=== PATIENT | male | born 1955 | race Caucasian/White ===

== ENCOUNTER 2017-01-25 11:52 | Inpatient (IN) | payer OTHER ==
[~2017-01-25] VITALS: Ht 167.6 cm; Wt 100.4 kg
[~2017-01-25 11:52] MED LIST: Z.0.NO CURRENT MEDS
[2017-01-25 11:54] VITALS: BP 157/83; PULSE 95; RESP 16; TEMP 98.1; O2SAT 99
[2017-01-25] MEDS ORDERED: PANTOPRAZOLE SODIUM 40 MG VIAL IVP ONE (12:15)
[2017-01-25] MEDS ORDERED: ONDANSETRON HCL 4 MG/2 ML VIAL IVP ONE (12:15)
[2017-01-25] MEDS ORDERED: SODIUM CHLOR 0.9% 1000 ML INJ 1,000 ML IV SCH (12:15)
[2017-01-25 12:21] VITALS: BP 158/83; PULSE 91; RESP 20; O2SAT 100
[2017-01-25] MEDS ORDERED: CANA1TAB3 PO (12:27)
[2017-01-25] MEDS ORDERED: AMLO5TAB2 PO (12:27)
[2017-01-25] MEDS ORDERED: ATOR10TA15 PO (12:27)
[2017-01-25] MEDS ORDERED: LISI10TA3 PO (12:27)
--- NOTE | 2017-01-25 12:39 | PD ---
HPI Chief Complaint: GI Complaint Time Seen by Provider: 12:33 Travel History International Travel<30 days: No Contact w/Intl Traveler<30days: No Traveled to known affect area: No History of Present Illness HPI 61-year-old male that presents to the ED for evaluation of dark stools and hematemesis. Patient states that for the past 2 days his been having hematemesis and dark stools. Per patient he does not take any blood thinners but takes ibuprofen and aspirin. Per patient he also drinks frequently secondary to running lumbar. Per patient she's never had this before. Per patient yesterday he had some nausea and vomited blood. He currently related to cover caused the but he does tell me that he was concerned because there was a lot of blood. He did not had another episode until this morning. Per patient since yesterday he is also having more regular and frequent bowel movements with darker stools. He is never had this before. Per patient he had a physical about 2 months ago which was essentially unremarkable. He does tell me that he has some problems with his legs secondary to swelling and neuropathy secondary to diabetes. Patient states that he's been compliant with his medications. He denies any other medical problem. He states that he doesn't really have any abdominal pain. He does to me that he had a fever yesterday and he took some ibuprofen for this. He states that he does not feel he has a fever today. He denies any urinary symptoms. Again he complains of no pain other than when he had the vomit secondary to the vomiting. Pain at this time is 0 out of 10 as he has no discomfort. PFSH Past Medical History Diabetes: Yes Patient Takes Glucophage: No Hypertension: Yes Influenza Vaccination: No Social History Alcohol Use: Yes (DAILY) Tobacco Use: No Substance Use: No Allergies-Medications (Allergen,Severity, Reaction): Coded Allergies: No Known Allergies (Verified , 01/25/17) Reported Meds & Prescriptions Reported Meds & Active Scripts Active Reported Invokamet (Canagliflozin-Metformin) 150-500 Mg Tab 1 Tab PO BID Take with meals. Avoid ethanol. Atorvastatin (Atorvastatin Calcium) 10 Mg Tab 10 Mg PO DAILY Amlodipine (Amlodipine Besylate) 5 Mg Tab 5 Mg PO DAILY Lisinopril 10 Mg Tab 10 Mg PO DAILY Review of Systems General / Constitutional: Positive: Fever, Chills, No: Weight Gain, Weight Loss, Other Eyes: No: Diploplia, Blurred Vision, Photophobia, Drainage, Redness, Foreign Body Sensation, Pain, Tearing, Blind Spots, Visual changes, Blindness, Other HENT: No: Headaches, Vertigo, Lightheadedness, Sore Throat, Rhinitis, Rhinorrhea, Congestion, Nosebleed, Neck Stiffness, Neck Pain, Masses, Gingival Bleeding, Dental Difficulties, Ear Discharge, Earache, Other Cardiovascular: No: Chest Pain or Discomfort, Palpitations, Irregular Rhythm, Tachycardia, Diaphoresis, Syncope, Dyspnea on exertion, Varicosities, Edema, Cyanosis, Varicosities, Phlebitis, Claudication, Other Respiratory: No: Cough, Shortness of Breath, Wheezing, Sneezing, Orthopnea, Hemoptysis, Stridor, Night Sweats, Pleuritic Pain, Other Gastrointestinal: Positive: Nausea, Vomiting, Diarrhea, Abdominal Pain, Hematemesis, Hematochezia Genitourinary: No: Urgency, Frequency, Dysuria, Nocturia, Hematuria, Decreased Urinary Output, Oliguria, Hesitancy, Dribbling, Incontinence, Pelvic Pain, Flank Pain, Dyspareunia, Discharge, Dysmenorrhea, Menorrhagia, Metorrhagia, Vaginal Bleeding, Other Musculoskeletal: No: Myalgias, Arthralgias, Limited ROM, Weakness, Cramping, Edema, Pain, Atrophy, Other Skin: No Rash, No Itching, No Dryness, No Lumps, No Hives, No Change in Pigmentation, No Change in nails, No Alopecia, No Lesions, No Breast Lumps, No Breast Tenderness, No Breast Swelling, No Other Neurologic: No: Weakness, Dizziness, Syncope, Focal Abnormalities, Coordination Problem, Tremor, Ataxia, Headache, Change in Mentation, Slurred Speech, Paresthesia, Incontinence, Seizures, Sensory Disturbance, Other Psychiatric: Positive: Substance Abuse (alcohol), No: Anxiety, Depression, Suicidal Ideations, Disorder of Thought, Mood Disorder, Homicidal Ideation, Other Endocrine: No: Heat Intolerance, Cold Intolerance, Polyuria, Polydipsia, Other Hematologic/Lymphatic: No: Easy Bruising, Lymph Node Enlargement, Other Physical Exam Narrative GENERAL: SKIN: Warm and dry. HEAD: Atraumatic. Normocephalic. EYES: Pupils equal and round 4 mm reactive to light and accommodation. No scleral icterus. No injection or drainage. ENT: No nasal bleeding or discharge. Mucous membranes pink and moist. Tongue is midline. No uvula deviation. NECK: Trachea midline. No JVD. CARDIOVASCULAR: Regular rate and rhythm. No murmurs, S3, S4. RESPIRATORY: No accessory muscle use. Clear to auscultation. Breath sounds equal bilaterally. GASTROINTESTINAL: Abdomen soft, non-tender, nondistended. Hepatic and splenic margins not palpable. Rectal exam was performed and did show positive Hemoccult that was unremarkable. No thong blood noted on exam. MUSCULOSKELETAL: Extremities without clubbing, cyanosis, or edema. No obvious deformities. Full range of motion of the upper and lower extremities bilaterally. 2+ pulses bilaterally. Patient does have 1+ pitting edema on the left leg compared to the right. Some scabbing on the lower legs. NEUROLOGICAL: Awake and alert. No obvious cranial nerve deficits. Motor grossly within normal limits. Five out of 5 muscle strength in the arms and legs. Normal speech. PSYCHIATRIC: Appropriate mood and affect; insight and judgment normal. Data Data Last Documented VS Vital Signs Date Time Temp Pulse Resp B/P Pulse Ox O2 Delivery O2 Flow Rate FiO2 01/25/17 12:21 91 20 158/83 100 Room Air 01/25/17 11:54 98.1 Orders Complete Blood Count With Diff (01/25/17 12:15) Comprehensive Metabolic Panel (01/25/17 12:15) Prothrombin Time / Inr (Pt) (01/25/17 12:15) Act Partial Throm Time (Ptt) (01/25/17 12:15) Lipase (01/25/17 12:15) Urinalysis - C+S If Indicated (01/25/17 12:15) Magnesium (Mg) (01/25/17 12:15) Iv Access Insert/Monitor (01/25/17 12:15) Ecg Monitoring (01/25/17 12:15) Oximetry (01/25/17 12:15) Ct Abd/Pel W Iv Contrast(Rout) (01/25/17 12:15) Ondansetron Inj (Zofran Inj) (01/25/17 12:15) Pantoprazole Inj (Protonix Inj) (01/25/17 12:15) Sodium Chlor 0.9% 1000 Ml Inj (Ns 1000 M (01/25/17 12:15) Admit Order (Ed Use Only) (01/25/17 14:51) Labs Laboratory Tests Test 01/25/17 12:35 White Blood Count 7.7 TH/MM3 Red Blood Count 3.44 MIL/MM3 Hemoglobin 11.7 GM/DL Hematocrit 34.7 % Mean Corpuscular Volume 100.8 FL Mean Corpuscular Hemoglobin 34.1 PG Mean Corpuscular Hemoglobin 33.9 % Concent Red Cell Distribution Width 15.1 % Platelet Count 88 TH/MM3 Mean Platelet Volume 8.9 FL Neutrophils (%) (Auto) 69.3 % Lymphocytes (%) (Auto) 18.5 % Monocytes (%) (Auto) 10.4 % Eosinophils (%) (Auto) 0.9 % Basophils (%) (Auto) 0.9 % Neutrophils # (Auto) 5.3 TH/MM3 Lymphocytes # (Auto) 1.4 TH/MM3 Monocytes # (Auto) 0.8 TH/MM3 Eosinophils # (Auto) 0.1 TH/MM3 Basophils # (Auto) 0.1 TH/MM3 CBC Comment AUTO DIFF Differential Comment AUTO DIFF CONFIRMED Platelet Estimate LOW Platelet Morphology Comment NORMAL Prothrombin Time 13.9 SEC Prothromb Time International 1.2 RATIO Ratio Activated Partial 27.4 SEC Thromboplast Time Urine Color YELLOW Urine Turbidity CLEAR Urine pH 7.0 Urine Specific [place] 1.029 Urine Protein NEG mg/dL Urine Glucose (UA) 1000 mg/dL Urine Ketones 10 mg/dL Urine Occult Blood NEG Urine Nitrite NEG Urine Bilirubin NEG Urine Urobilinogen LESS THAN 2.0 MG/DL Urine Leukocyte Esterase NEG Urine RBC 2 /hpf Urine WBC LESS THAN 1 /hpf Urine Squamous Epithelial <1 /hpf Cells Urine Mucus FEW /lpf Microscopic Urinalysis Comment CULT NOT INDICATED Sodium Level 136 MEQ/L Potassium Level 3.9 MEQ/L Chloride Level 103 MEQ/L Carbon Dioxide Level 24.1 MEQ/L Anion Gap 9 MEQ/L Blood Urea Nitrogen 18 MG/DL Creatinine 0.82 MG/DL Estimat Glomerular Filtration 96 ML/MIN Rate Random Glucose 128 MG/DL Calcium Level 8.6 MG/DL Magnesium Level 2.1 MG/DL Total Bilirubin 1.8 MG/DL Aspartate Amino Transf 72 U/L (AST/SGOT) Alanine Aminotransferase 28 U/L (ALT/SGPT) Alkaline Phosphatase 148 U/L Total Protein 6.9 GM/DL Albumin 2.8 GM/DL Lipase 181 U/L [facility] Medical Decision Making Medical Screen Exam Complete: Yes Emergency Medical Condition: Yes Medical Record Reviewed: Yes Interpretation(s) CBC & BMP Diagram 01/25/17 12:35 LFts WNL Coags WNL UA negative CT of the abdomen shows cirrhotic changes with some ascites and portal hypertension Differential Diagnosis GI bleed versus hematemesis versus diverticulitis versus mass versus cancer versus gastroenteritis versus peptic ulcer disease Narrative Course 61-year-old male that presents to the ED for evaluation of possible GI bleed. Patient was properly examined and was found to have signs and symptoms consistent appears to be possible upper GI bleed. At this time labs and imaging ordered. Patient was started on Protonix. Positive Hemoccult was performed by me. Case discussed in my attending who agrees with plan and evaluated the patient and agrees with possible admission. Labs and imaging were essentially unremarkable other than for cirrhosis. Because of patient's new found cirrhosis and history of the upper and lower GI bleed recommendation is for admission for further workup. Patient is agreeable with this plan. Case was discussed with Dr. Link who agrees to admission. Procedures EKG Prior to Arrival: No HemaPrompt Point of Care Internal Pos. & Neg. Controls: Passed Fecal Specimen Occult Blood: Positive Gastric Specimen Occult Blood: Negative Diagnosis Primary Impression: GI bleed Qualified Code: K92.2 - Gastrointestinal hemorrhage, unspecified gastrointestinal hemorrhage type Admitting Information Admitting Physician Requests: Admit Donnell Dyer Jan 25, 2017 12:39
[2017-01-25 12:57] LABS: AUTOMATED NEUTROPHIL # 5.3 TH/MM3 (1.8-7.7); BASOPHIL # 0.1 TH/MM3 (0-0.2); BASOPHIL % 0.9 % (0.0-2.0); EOSINOPHIL # 0.1 TH/MM3 (0-0.4); EOSINOPHIL % 0.9 % (0.0-4.0); HEMATOCRIT 34.7 % (39.0-51.0); LYMPH % 18.5 % (9.0-44.0); LYMPHOCYTE # 1.4 TH/MM3 (1.0-4.8); MEAN CELL VOLUME 100.8 FL (80.0-100.0); MEAN CORPUSCULAR HEMOGLOBIN 34.1 PG (27.0-34.0); MEAN CORPUSCULAR HGB CONC 33.9 % (32.0-36.0); MONO % 10.4 % (0.0-8.0); NEUT % 69.3 % (16.0-70.0); PLATELET COUNT 88 TH/MM3 (150-450); RED BLOOD COUNT 3.44 MIL/MM3 (4.50-5.90); RED CELL DISTRIBUTION WIDTH 15.1 % (11.6-17.2); WHITE BLOOD COUNT 7.7 TH/MM3 (4.0-11.0)
[2017-01-25 12:59] LABS: HEMO FLAGS AUTO DIFF
[2017-01-25 13:04] LABS: APTT (PATIENT) 27.4 SEC (24.3-30.1); INTERNATIONAL NORMALIZED RATIO 1.2 RATIO; PROTHROMBIN TIME - PATIENT 13.9 SEC (9.8-11.6)
[2017-01-25 13:05] LABS: BLOOD, URINE NEG (NEG); COMMENT (UR) CULT NOT INDICATED; CULTURE IF INDICATED CULT NOT INDICATED; GLUCOSE,URINE 1000 mg/dL (NEG); KETONE, URINE 10 mg/dL (NEG); MUCUS URINE FEW /lpf (OCC); NITRITE,URINE NEG (NEG); SQUAMOUS EPITHELIAL CELL URINE <1 /hpf (0-5); URINE COLOR YELLOW (YELLW/STRAW)
[2017-01-25 13:17] LABS: ALT (GPT) 28 U/L (12-78); ANION GAP 9 MEQ/L (5-15); AST (GOT) 72 U/L (15-37); BICARBONATE 24.1 MEQ/L (21.0-32.0); BLOOD UREA NITROGEN 18 MG/DL (7-18); CHLORIDE 103 MEQ/L (98-107); GLOMERULAR FILTRATION RATE 96 ML/MIN (>89); MAGNESIUM 2.1 MG/DL (1.5-2.5); POTASSIUM 3.9 MEQ/L (3.5-5.1); SODIUM (NA) 136 MEQ/L (136-145)
[2017-01-25 13:18] LABS: ALKALINE PHOSPHATASE 148 U/L (45-117); TOTAL BILIRUBIN ADULT 1.8 MG/DL (0.2-1.0)
[2017-01-25 13:32] LABS: PLATELET ESTIMATE SMEAR LOW (NORMAL); PLATELET MORPHOLOGY NORMAL (NORMAL); SCAN/DIFF AUTO DIFF CONFIRMED
[2017-01-25] MEDS ORDERED: IOHEXOL 350 MG/ML 10 ML VIAL (for RAD DIAG) IV ONE (13:53)
--- NOTE | 2017-01-25 14:41 | RADRPT ---
EXAM DATE/TIME: 01/25/2017 13:53 [facility] COMPARISON: No previous studies available for comparison. INDICATIONS : Blood in stool and hematemesis. IV CONTRAST: 95 cc Omnipaque 350 (iohexol) IV ORAL CONTRAST: No oral contrast ingested. RADIATION DOSE: 17.73 CTDIvol (mGy) MEDICAL HISTORY : None SURGICAL HISTORY : None. ENCOUNTER: Initial ACUITY: 2 days PAIN SCALE: 0/10 LOCATION: Abdomen. TECHNIQUE: Volumetric scanning of the abdomen and pelvis was performed. Using automated exposure control and ad justment of the mA and/or kV according to patient size, radiation dose was kept as low as reasonably achievable to obtain optimal diagnostic quality images. FINDINGS: There is evidence of an enlarged nodular heterogeneous liver suggesting cirrhosis. There is recanali zation of the umbilical vein as well as esophageal varices indicating portal hypertension. There is also evidence of splenomegaly. Some ascites is noted within the abdomen and pelvis. The gallbladder is unremarkable. The pancreas is normal. The adrenal glands are normal bilaterally. The kidneys en elham briskly and demonstrate no evidence of focal mass or hydronephrosis. Scattered uncomplicated d iverticula are noted within the colon. The urinary bladder is unremarkable. No lymphadenopathy is n oted. The abdominal aorta is calcified but it is not aneurysmally dilated. The inferior vena cava i s normal. There is Grade I anterolisthesis of L5 in relation to S1 with bilateral pars defects. CONCLUSION: 1. Enlarged nodular heterogeneous liver indicating cirrhosis. 2. Recanalization of the umbilical vein and esophageal varices as well as splenomegaly suggesting por usman hypertension. 3. Uncomplicated colonic diverticulosis. 4. Grade I anterolisthesis of L5 in relation to S1 with bilateral pars defects. 5. Some ascites within the abdomen and pelvis. Jose Fox MD on January 25, 2017 at 14:28 Board Certified Radiologist. This report was verified electronically.
--- NOTE | 2017-01-25 15:03 | PD ---
Physical Exam Date Seen by Provider: Jan 25, 2017 Time Seen by Provider: 13:00 Narrative I, Dr. Moctezuma, have reviewed the advance practice practitioner's documentation and am in agreement, met with the patient face to face, made the diagnosis, and the medical decision making was done by me. *My assessment and Findings: Patient seen and evaluated with PA, please see pain no for further details. Here with vomiting, and blood in the stools. Hemoccult positive. Abdomen is soft, nontender. Vital signs are stable in the ER. Initial workup done did not show significant H&H decreased. Laboratory Tests Test 01/25/17 12:35 Red Blood Count 3.44 MIL/MM3 (4.50-5.90) Hemoglobin 11.7 GM/DL (13.0-17.0) Hematocrit 34.7 % (39.0-51.0) Mean Corpuscular Volume 100.8 FL (80.0-100.0) Mean Corpuscular Hemoglobin 34.1 PG (27.0-34.0) Platelet Count 88 TH/MM3 (150-450) Monocytes (%) (Auto) 10.4 % (0.0-8.0) Platelet Estimate LOW (NORMAL) Prothrombin Time 13.9 SEC (9.8-11.6) Urine Glucose (UA) 1000 mg/dL (NEG) Urine Ketones 10 mg/dL (NEG) Urine Mucus FEW /lpf (OCC) Random Glucose 128 MG/DL (74-106) Total Bilirubin 1.8 MG/DL (0.2-1.0) Aspartate Amino Transf 72 U/L (15-37) (AST/SGOT) Alkaline Phosphatase 148 U/L (45-117) Albumin 2.8 GM/DL (3.4-5.0) CAT scan did not show any signs of acute intra-abdominal processes however it did show cirrhosis and ascites which is suspect could be aggravating the GI bleed. However, at this point, plan would be to admit the patient for further evaluation of GI bleed. Case is discussed with Dr. Castillo for admission. Data Data Last Documented VS Vital Signs Date Time Temp Pulse Resp B/P Pulse Ox O2 Delivery O2 Flow Rate FiO2 01/25/17 12:21 91 20 158/83 100 Room Air 01/25/17 11:54 98.1 Orders Complete Blood Count With Diff (01/25/17 12:15) Comprehensive Metabolic Panel (01/25/17 12:15) Prothrombin Time / Inr (Pt) (01/25/17 12:15) Act Partial Throm Time (Ptt) (01/25/17 12:15) Lipase (01/25/17 12:15) Urinalysis - C+S If Indicated (01/25/17 12:15) Magnesium (Mg) (01/25/17 12:15) Iv Access Insert/Monitor (01/25/17 12:15) Ecg Monitoring (01/25/17 12:15) Oximetry (01/25/17 12:15) Ct Abd/Pel W Iv Contrast(Rout) (01/25/17 12:15) Ondansetron Inj (Zofran Inj) (01/25/17 12:15) Pantoprazole Inj (Protonix Inj) (01/25/17 12:15) Sodium Chlor 0.9% 1000 Ml Inj (Ns 1000 M (01/25/17 12:15) Admit Order (Ed Use Only) (01/25/17 14:51) Labs Laboratory Tests Test 01/25/17 12:35 White Blood Count 7.7 TH/MM3 Red Blood Count 3.44 MIL/MM3 Hemoglobin 11.7 GM/DL Hematocrit 34.7 % Mean Corpuscular Volume 100.8 FL Mean Corpuscular Hemoglobin 34.1 PG Mean Corpuscular Hemoglobin 33.9 % Concent Red Cell Distribution Width 15.1 % Platelet Count 88 TH/MM3 Mean Platelet Volume 8.9 FL Neutrophils (%) (Auto) 69.3 % Lymphocytes (%) (Auto) 18.5 % Monocytes (%) (Auto) 10.4 % Eosinophils (%) (Auto) 0.9 % Basophils (%) (Auto) 0.9 % Neutrophils # (Auto) 5.3 TH/MM3 Lymphocytes # (Auto) 1.4 TH/MM3 Monocytes # (Auto) 0.8 TH/MM3 Eosinophils # (Auto) 0.1 TH/MM3 Basophils # (Auto) 0.1 TH/MM3 CBC Comment AUTO DIFF Differential Comment AUTO DIFF CONFIRMED Platelet Estimate LOW Platelet Morphology Comment NORMAL Prothrombin Time 13.9 SEC Prothromb Time International 1.2 RATIO Ratio Activated Partial 27.4 SEC Thromboplast Time Urine Color YELLOW Urine Turbidity CLEAR Urine pH 7.0 Urine Specific [place] 1.029 Urine Protein NEG mg/dL Urine Glucose (UA) 1000 mg/dL Urine Ketones 10 mg/dL Urine Occult Blood NEG Urine Nitrite NEG Urine Bilirubin NEG Urine Urobilinogen LESS THAN 2.0 MG/DL Urine Leukocyte Esterase NEG Urine RBC 2 /hpf Urine WBC LESS THAN 1 /hpf Urine Squamous Epithelial <1 /hpf Cells Urine Mucus FEW /lpf Microscopic Urinalysis Comment CULT NOT INDICATED Sodium Level 136 MEQ/L Potassium Level 3.9 MEQ/L Chloride Level 103 MEQ/L Carbon Dioxide Level 24.1 MEQ/L Anion Gap 9 MEQ/L Blood Urea Nitrogen 18 MG/DL Creatinine 0.82 MG/DL Estimat Glomerular Filtration 96 ML/MIN Rate Random Glucose 128 MG/DL Calcium Level 8.6 MG/DL Magnesium Level 2.1 MG/DL Total Bilirubin 1.8 MG/DL Aspartate Amino Transf 72 U/L (AST/SGOT) Alanine Aminotransferase 28 U/L (ALT/SGPT) Alkaline Phosphatase 148 U/L Total Protein 6.9 GM/DL Albumin 2.8 GM/DL Lipase 181 U/L [facility] Medical Record Reviewed: Yes Supervised Visit with ALIN: Yes Diagnosis Primary Impression: GI bleed Qualified Code: K92.2 - Gastrointestinal hemorrhage, unspecified gastrointestinal hemorrhage type Admitting Information Admitting Physician Requests: Admit Claudine Moctezuma MD Jan 25, 2017 15:03
[2017-01-25] MEDS ORDERED: SODIUM CHLORIDE 0.9% FLUSH 10 ML FLUSH IV FLUSH PRN (15:30)
[2017-01-25] MEDS ORDERED: ONDANSETRON HCL 4 MG/2 ML VIAL IV PRN (15:30)
[2017-01-25] MEDS ORDERED: OCTREOTIDE INJ 50 MCG/ML AMP IVP ONE (15:30)
--- NOTE | 2017-01-25 15:54 | HHI.HP ---
HPI Service [facility] [place] [facility] Primary Care Physician Ulisses Hay, DO Admission Diagnosis GI bleed Chief Complaint: Melena, hematemesis Travel History International Travel<30 Days: No Contact w/Intl Traveler <30 Da: No Traveled to Known Affected Are: No History of Present Illness Mr. Wilkinson is a pleasant 61 y/o WM with HTN, diabetes, hyperlipidemia and alcohol abuse. He reported to the ED at [facility] [place] on [place] with reported melena and hematemesis. He states that he woke up yesterday morning and had black stool and then vomited up blood. The pt reports that he is color blind so he could not tell if it was bright red blood on the emesis. He had another episode of vomiting up blood last night. Today pt has had loose black tarry stool but no further vomiting. He denies any previous similar episodes. He states that today he felt somewhat weak but denies any dizziness, chest pain, palpitations, SOB. He does reports that he takes a couple ibuprofen and one ASA at night for his diabetic peripheral neuropathy which he has been doing every night for the last 6 months. He denies any previous evaluation with EGD or colonoscopy. He denies any abd pain or reflux in the last 9 months. He used to have issues with reflux but this has improved. Pt reports that he had a fever of 101 last night and took some Tylenol and that improved. Pts labs at admission Hgb 11.7, Hct 34.1, MCV 100.8, Platelet count 88,000. His LFTs revealed TBili 1.8, AST 72, ALT 28, AlkPhos 148. CT Abd/pelvis in the ED revealed enlarged nodular heterogeneous liver indicating cirrhosis, recanalization of the umbilical vein and esophageal varices as well as splenomegaly suggesting portal hypertension, uncomplicated colonic diverticulosis, grade I anterolisthesis of L5 in relation to S1 with bilateral pars defects and some ascites within the abdomen and pelvis. Pt was noted to be Hemoccult positive in the ED. Review of Systems Constitutional: DENIES: Fever, Chills Eyes: DENIES: Vision loss Ears, nose, mouth, throat: DENIES: Hearing loss Respiratory: DENIES: Cough, Shortness of breath Cardiovascular: DENIES: Chest pain, Palpitations Gastrointestinal: COMPLAINS OF: Black stools, Vomiting, DENIES: Abdominal pain , BRB per rectum, Constipation, Diarrhea, GERD, Nausea Genitourinary: DENIES: Hematuria, Dysuria Musculoskeletal: DENIES: Back pain, Neck pain Integumentary: DENIES: Rash Neurologic: DENIES: Headache Psychiatric: DENIES: Confusion Past Family Social History Past Medical History Diabetes Diabetic peripheral neuropathy HTN Hyperlipidemia Alcohol abuse Past Surgical History Rotator cuff surgery 8-10 years ago Reported Medications Reported Meds & Active Scripts Active Reported Invokamet (Canagliflozin-Metformin) 150-500 Mg Tab 1 Tab PO BID Take with meals. Avoid ethanol. Atorvastatin (Atorvastatin Calcium) 10 Mg Tab 10 Mg PO DAILY Amlodipine (Amlodipine Besylate) 5 Mg Tab 5 Mg PO DAILY Lisinopril 10 Mg Tab 10 Mg PO DAILY Allergies: Coded Allergies: No Known Allergies (Verified , 01/25/17) Family History Brother with hx of cancer of the lymph nodes, specifics are unclear. Father with hx of colon cancer in his 70's Social History Denies any hx of tobacco use He was been around a lot of second had smoke Alcohol use, pt drinks 2-3 beers in the afternoon and 1bottle of wine per day. Pt used to drink more heavily on beer, about 6pack per beer. He has been drinking regularly since his 20's. Denies any illicit drug use Pt owns a bar Physical Exam Vital Signs Vital Signs Date Time Temp Pulse Resp B/P Pulse Ox O2 Delivery O2 Flow Rate FiO2 01/25/17 12:21 91 20 158/83 100 Room Air 01/25/17 11:54 98.1 95 16 157/83 99 Physical Exam GENERAL: This is a well-nourished, well-developed patient, in no apparent distress. SKIN: HEENT: Atraumatic. Normocephalic. No temporal or scalp tenderness. No scleral icterus. Airway patent. NECK: Trachea midline, supple, nontender. CARDIO: Regular. RESP: CTA bilaterally. No wheezes, rales, or rhonchi. ABD: +BS, firm, non-tender, distended. Splenomegaly. No guarding. EXT: Bilateral LE edema. Venous stasis changes of bilateral LE. NEURO: Awake and alert. Motor and sensory grossly within normal limits. Normal speech. Laboratory Laboratory Tests Test 01/25/17 12:35 White Blood Count 7.7 Red Blood Count 3.44 Hemoglobin 11.7 Hematocrit 34.7 Mean Corpuscular Volume 100.8 Mean Corpuscular Hemoglobin 34.1 Mean Corpuscular Hemoglobin 33.9 Concent Red Cell Distribution Width 15.1 Platelet Count 88 Mean Platelet Volume 8.9 Neutrophils (%) (Auto) 69.3 Lymphocytes (%) (Auto) 18.5 Monocytes (%) (Auto) 10.4 Eosinophils (%) (Auto) 0.9 Basophils (%) (Auto) 0.9 Neutrophils # (Auto) 5.3 Lymphocytes # (Auto) 1.4 Monocytes # (Auto) 0.8 Eosinophils # (Auto) 0.1 Basophils # (Auto) 0.1 CBC Comment AUTO DIFF Differential Comment AUTO DIFF CONFIRMED Platelet Estimate LOW Platelet Morphology Comment NORMAL Prothrombin Time 13.9 Prothromb Time International 1.2 Ratio Activated Partial 27.4 Thromboplast Time Urine Color YELLOW Urine Turbidity CLEAR Urine pH 7.0 Urine Specific [place] 1.029 Urine Protein NEG Urine Glucose (UA) 1000 Urine Ketones 10 Urine Occult Blood NEG Urine Nitrite NEG Urine Bilirubin NEG Urine Urobilinogen LESS THAN 2.0 Urine Leukocyte Esterase NEG Urine RBC 2 Urine WBC LESS THAN 1 Urine Squamous Epithelial <1 Cells Urine Mucus FEW Microscopic Urinalysis Comment CULT NOT INDICATED Sodium Level 136 Potassium Level 3.9 Chloride Level 103 Carbon Dioxide Level 24.1 Anion Gap 9 Blood Urea Nitrogen 18 Creatinine 0.82 Estimat Glomerular Filtration 96 Rate Random Glucose 128 Calcium Level 8.6 Magnesium Level 2.1 Total Bilirubin 1.8 Aspartate Amino Transf 72 (AST/SGOT) Alanine Aminotransferase 28 (ALT/SGPT) Alkaline Phosphatase 148 Total Protein 6.9 Albumin 2.8 Lipase 181 Result Diagram: 01/25/17 1235 01/25/17 1235 Imaging Last Impressions Abdomen/Pelvis CT 01/25/17 1215 Signed Impressions: Service Date/Time: Wednesday, January 25, 2017 13:53 - CONCLUSION: 1. Enlarged nodular heterogeneous liver indicating cirrhosis. 2. Recanalization of the umbilical vein and esophageal varices as well as splenomegaly suggesting portal hypertension. 3. Uncomplicated colonic diverticulosis. 4. Grade I anterolisthesis of L5 in relation to S1 with bilateral pars defects. 5. Some ascites within the abdomen and pelvis. Jose Fox MD Septic Shock Reassessment Heart: Regular rate and rhythm Lungs: Clear Skin: Warm Assessment and Plan Problem List: (1) GI bleed Status: Acute Plan: - Pt was admitted to [facility] on 01/25/17 with hematemesis and melanotic stool in an alcohol pt who has been taking NSAIDs daily as well. Pt was noted to be Hemoccult positive in the ED. - He has not had any previous evaluation with EGD or colonoscopy. - Consult GI - NPO except meds - Octreotide bolus and gtt - Protonix gtt - IVF - Monitor labs closely - Transfuse as necessary - DVT prophylaxis with SCDs (2) Alcoholic cirrhosis of liver with ascites Status: Chronic Plan: - Pt with longstanding hx of alcohol abuse - He is noted to be thrombocytopenic and have a slight coagulopathy with INR 1.2 likely secondary to his cirrhosis. - His LFTs revealed TBili 1.8, AST 72, ALT 28, AlkPhos 148. - CT Abd/pelvis in the ED revealed enlarged nodular heterogeneous liver indicating cirrhosis, recanalization of the umbilical vein and esophageal varices as well as splenomegaly suggesting portal hypertension, uncomplicated colonic diverticulosis, grade I anterolisthesis of L5 in relation to S1 with bilateral pars defects and some ascites within the abdomen and pelvis. - MVI/Folic acid/Thiamin - Librium 25mg TID - Ativan PRN for etoh withdrawal precautions - EtOH precautions - Alcohol cessation (3) Thrombocytopenia Status: Chronic Plan: - See above. (4) Diabetes Status: Chronic Plan: - NovoLog SSI - Accu checks - Hold OHA (5) HTN (hypertension) Status: Chronic Plan: - Cont. home meds (6) Hyperlipidemia Status: Chronic Plan: - Hold statin due to cirrhosis Assessment and Plan Patient examined. Assessment and plan formulated with Eugenia Diaz PA-C. I agree with the above. ugib. liver cirrhosis probably etoh related portal htn. varices. ascites. splenomegaly. thrombocytopenia. octeotide.ppi. ivf. npo.gi consult for egd etoh w/d precaution. librium and prn ativan. Physician Certification 2 Midnight Certification Type: Admission for Inpatient Services Order for Inpatient Services The services are ordered in accordance with Medicare regulations or non- Medicare payer requirements, as applicable. In the case of services not specified as inpatient-only, they are appropriately provided as inpatient services in accordance with the 2-midnight benchmark. Estimated LOS (days): 3 3 days is the estimated time the patient will need to remain in the hospital, assuming treatment plan goals are met and no additional complications. Post-Hospital Plan: Not yet determined Problem Qualifiers (1) GI bleed: Qualified Code: K92.2 - Gastrointestinal hemorrhage, unspecified gastrointestinal hemorrhage type (2) Diabetes: Eugenia Diaz Jan 25, 2017 15:54 Juve Castillo MD Jan 25, 2017 19:40
[2017-01-25] MEDS ORDERED: LORazepam 2 MG/ML VIAL IV PUSH PRN (16:00)
[2017-01-25] MEDS ORDERED: cloNIDine HCL 0.1 MG TAB PO PRN (16:00)
[2017-01-25] MEDS: PANTOPRAZOLE INJ 80 MG in SODIUM CHLORIDE 0.9% INJ 100 ML IV SCH ×2 (16:06→23:20)
[2017-01-25] MEDS: OCTREOTIDE INJ 500 MCG in SODIUM CHLORID 0.9% 500 ML INJ 499.5 ML IV SCH ×2 (16:06→23:20)
[2017-01-25 16:20] VITALS: BP 122/74; PULSE 77; RESP 16; O2SAT 96
--- NOTE | 2017-01-25 16:31 | PD.CONS ---
HPI History of Present Illness This is a 61 year old male with a hx of alcohol abuse who came to the er for evaluation of melena and hematemesis. He reports that his symptoms began yesterday around 8am. He reports that he vomited yesterday morning around 8am. He is colorblind and not sure about the color, but states that this appeared to be blood. He denies any associated abdominal pain. Shortly after, he started having loose dark stools. He does have frequent bowel movement because of his diabetes medications, but states that these were more frequent than usual. He has been fatigued and been having some generalized weakness, but denies any shortness of breath. He did have a low grade fever last night, but took some Nyquil and states that he has been afebrile since. He denies any hx of GI bleeding or ulcers. He did use to get heartburn and reflux and was on Nexium for awhile, but states he has not had symptoms of this in about 9 months and no longer takes this. He has been using ibuprofen at night (two at a time) with a katie aspirin before he goes to bed for the past few months for neuropathy pain. He drinks a large bottle of wine per day. CT Abd/pelvis revealed enlarged nodular heterogeneous liver indicating cirrhosis, recanalization of the umbilical vein and esophageal varices as well as splenomegaly suggesting portal hypertension, uncomplicated colonic diverticulosis, grade I anterolisthesis of L5 in relation to S1 with bilateral pars defects and some ascites within the abdomen and pelvis. Pt was noted to be Hemoccult positive in the ED. He has never been told in the past that he had liver cirrhosis. (Peggy Peck) PFSH Past Medical History Diabetes Diabetic peripheral neuropathy HTN Hyperlipidemia Alcohol abuse Past Surgical History Rotator cuff surgery 8-10 years ago (Peggy Peck) Coded Allergies: No Known Allergies (Verified , 01/25/17) Medications Allergies Coded Allergies Type Severity Reaction Last Updated Verified No Known Allergies 01/25/17 Yes Active Scripts Medications Dose Route/Sig Days Date Category Dose Instructions Invokamet (Canagliflozin-Metformin) 150-500 Mg Tab 1 Tab PO BID 01/25/17 Reported Take with meals. Avoid ethanol. Atorvastatin (Atorvastatin Calcium) 10 Mg Tab 10 Mg PO DAILY 01/25/17 Reported Amlodipine (Amlodipine Besylate) 5 Mg Tab 5 Mg PO DAILY 01/25/17 Reported Lisinopril 10 Mg Tab 10 Mg PO DAILY 01/25/17 Reported Ibuprofen ii and a katie asa at night. Family History Brother with hx of cancer of the lymph nodes, specifics are unclear. Father with hx of colon cancer in his 70's Social History Denies any hx of tobacco use Alcohol use, pt drinks 2-3 beers in the afternoon and 1bottle of wine per day. Pt used to drink more heavily on beer, about 6pack per beer. He has been drinking regularly since his 20's. Denies any illicit drug use (Peggy Peck) Review of Systems Constitutional: COMPLAINS OF: Fatigue, Fever, Weight loss (15 lb weight loss over the past year), DENIES: Chills Respiratory: DENIES: Cough, Shortness of breath Cardiovascular: DENIES: Chest pain Gastrointestinal: COMPLAINS OF: Black stools, Nausea, Vomiting, Heartburn, Hematemesis, DENIES: Abdominal pain, Bloody stools, Constipation, Diarrhea Musculoskeletal: COMPLAINS OF: Joint pain Hematologic/lymphatic: COMPLAINS OF: Bruising Neurologic: COMPLAINS OF: Headache Psychiatric: DENIES: Confusion (Peggy Peck) GI Exam Vitals I&O Vital Signs Date Time Temp Pulse Resp B/P Pulse Ox O2 Delivery O2 Flow Rate FiO2 01/25/17 16:20 77 16 122/74 96 Room Air 01/25/17 12:21 91 20 158/83 100 Room Air 01/25/17 11:54 98.1 95 16 157/83 99 Imaging Last Impressions Abdomen/Pelvis CT 01/25/17 1215 Signed Impressions: Service Date/Time: Wednesday, January 25, 2017 13:53 - CONCLUSION: 1. Enlarged nodular heterogeneous liver indicating cirrhosis. 2. Recanalization of the umbilical vein and esophageal varices as well as splenomegaly suggesting portal hypertension. 3. Uncomplicated colonic diverticulosis. 4. Grade I anterolisthesis of L5 in relation to S1 with bilateral pars defects. 5. Some ascites within the abdomen and pelvis. Jose Fox MD Laboratory Test 01/25/17 12:35 White Blood Count 7.7 TH/MM3 Red Blood Count 3.44 MIL/MM3 Hemoglobin 11.7 GM/DL Hematocrit 34.7 % Mean Corpuscular Volume 100.8 FL Mean Corpuscular Hemoglobin 34.1 PG Mean Corpuscular Hemoglobin 33.9 % Concent Red Cell Distribution Width 15.1 % Platelet Count 88 TH/MM3 Mean Platelet Volume 8.9 FL Neutrophils (%) (Auto) 69.3 % Lymphocytes (%) (Auto) 18.5 % Monocytes (%) (Auto) 10.4 % Eosinophils (%) (Auto) 0.9 % Basophils (%) (Auto) 0.9 % Neutrophils # (Auto) 5.3 TH/MM3 Lymphocytes # (Auto) 1.4 TH/MM3 Monocytes # (Auto) 0.8 TH/MM3 Eosinophils # (Auto) 0.1 TH/MM3 Basophils # (Auto) 0.1 TH/MM3 CBC Comment AUTO DIFF Differential Comment AUTO DIFF CONFIRMED Platelet Estimate LOW Platelet Morphology Comment NORMAL Prothrombin Time 13.9 SEC Prothromb Time International 1.2 RATIO Ratio Activated Partial 27.4 SEC Thromboplast Time Urine Color YELLOW Urine Turbidity CLEAR Urine pH 7.0 Urine Specific [place] 1.029 Urine Protein NEG mg/dL Urine Glucose (UA) 1000 mg/dL Urine Ketones 10 mg/dL Urine Occult Blood NEG Urine Nitrite NEG Urine Bilirubin NEG Urine Urobilinogen LESS THAN 2.0 MG/DL Urine Leukocyte Esterase NEG Urine RBC 2 /hpf Urine WBC LESS THAN 1 /hpf Urine Squamous Epithelial <1 /hpf Cells Urine Mucus FEW /lpf Microscopic Urinalysis Comment CULT NOT INDICATED Sodium Level 136 MEQ/L Potassium Level 3.9 MEQ/L Chloride Level 103 MEQ/L Carbon Dioxide Level 24.1 MEQ/L Anion Gap 9 MEQ/L Blood Urea Nitrogen 18 MG/DL Creatinine 0.82 MG/DL Estimat Glomerular Filtration 96 ML/MIN Rate Random Glucose 128 MG/DL Calcium Level 8.6 MG/DL Magnesium Level 2.1 MG/DL Total Bilirubin 1.8 MG/DL Aspartate Amino Transf 72 U/L (AST/SGOT) Alanine Aminotransferase 28 U/L (ALT/SGPT) Alkaline Phosphatase 148 U/L Total Protein 6.9 GM/DL Albumin 2.8 GM/DL Lipase 181 U/L Physical Examination HEENT: Normocephalic; atraumatic; no jaundice. CHEST: Chest is clear to auscultation and percussion. CARDIAC: RRR. ABDOMEN: Soft, obese, rounded, nondistended, nontender; hepatosplenomegaly; bowel sounds are present in all four quadrants. EXTREMITIES: No clubbing, cyanosis, or edema. SKIN: Normal; no rash; no jaundice. MERCHANDISING REPRESENTATIVE: No focal deficits; alert and oriented times three. (Peggy Peck) Assessment and Plan Plan ASSESSMENT: - GIB, Upper with possible hematemesis/melena. Pt started having vomiting yesterday morning around 8am and then started having dark stools shortly afterwards. He then vomited another time yesterday evening. He is color blind so he is not sure about the color but feels this was blood. He denies any hx of GI bleeding, PUD. He has never had an egd/colonoscopy. HH 11.7/34.7. Hemoccult positive stool in ER. He drinks a bottle of wine daily. He also takes 2 ibuprofen with a katie asa at night for neuropathy pain. He states that he would like both egd/colonoscopy at the same time if he is going to have EGD. - Elevated LFTs/Liver cirrhosis, new diagnosis. CT Abd/pelvis revealed enlarged nodular heterogeneous liver indicating cirrhosis, recanalization of the umbilical vein and esophageal varices as well as splenomegaly suggesting portal hypertension, uncomplicated colonic diverticulosis, grade I anterolisthesis of L5 in relation to S1 with bilateral pars defects and some ascites within the abdomen and pelvis. Pt has long ETOH use. Never been told he has cirrhosis. Likely related to ETOH, will check liver workup. - DM, Neuropathy, HTN, Hyperlipidemia per primary. - FHx colon cancer in father. Brother had some type of cancer involving the lymph nodes, he does not know the details. PLAN: - Plan for EGD/Colonoscopy in am - Obtain consents - Clear liquids - NPO after MN - Magnesium citrate prep - Protonix Gtt. - Octreotidge gtt - Monitor labs - Supportive care - Further recommendations to follow based on results of above - Pt seen and examined by Dr. Camp and myself and this note is written on her behalf (Peggy Peck) Physician Comments seen, examined agree with above history of nsaids use (Juanis Jay MD) Peggy Peck Jan 25, 2017 16:31 Juanis Jay MD Jan 25, 2017 18:11
[2017-01-25] MEDS ORDERED: MAGNESIUM CITRATE SOLN 300 ML BTL PO ONE ×2 (17:00→19:00)
[2017-01-25] MEDS: THIAMINE INJ 100 MG in SODIUM CHLORIDE 0.9% INJ 100 ML IV SCH (17:00)
[2017-01-25] MEDS: SODIUM CHLOR 0.9% 1000 ML INJ 1,000 ML IV SCH (17:00)
[2017-01-25 17:48] LABS: FERRITIN 496 NG/ML (26-388); TRANSFERRIN IRON PROFILE 163 MG/DL (200-360)
[2017-01-25 18:00] VITALS: BP 108/66; PULSE 81; RESP 17; TEMP 98.4; O2SAT 98
[2017-01-25] MEDS ORDERED: chlordiazePOXIDE 25 MG CAP PO SCH (18:00)
[2017-01-25] MEDS ORDERED: NUGENIX (18:41)
[2017-01-25] MEDS: INSULIN ASPART SUPPLEMENTAL SCALE SQ SCH ×2 (19:58→23:20)
[2017-01-25] MEDS: SODIUM CHLORIDE 0.9% FLUSH 10 ML FLUSH IV FLUSH SCH (19:58)
[2017-01-25 20:00] VITALS: BP 113/70; PULSE 84; RESP 16; TEMP 99.1; O2SAT 97
[2017-01-25 20:07] VITALS: PULSE 102
[2017-01-25 21:47] LABS: HEMATOCRIT 33.8 % (39.0-51.0); REVIEW FLAG FINAL
[2017-01-25] MEDS: chlordiazePOXIDE 25 MG CAP PO SCH (23:20)
[2017-01-26] VITALS (8 sets, daily range): BP systolic 98–124; BP diastolic 64–83; PULSE 73–92; RESP 16–19; TEMP 96.9–99.6; O2SAT 94–99
[2017-01-26] MEDS ORDERED: PANTOPRAZOLE SODIUM 40 MG VIAL IV PUSH SCH (01:00)
[2017-01-26] MEDS: INSULIN ASPART SUPPLEMENTAL SCALE SQ SCH ×6 (02:58→23:04)
[2017-01-26] MEDS: chlordiazePOXIDE 25 MG CAP PO SCH ×4 (02:58→23:01)
[2017-01-26 05:05] LABS: BASOPHIL # 0.1 TH/MM3 (0-0.2); EOSINOPHIL # 0.1 TH/MM3 (0-0.4); HEMATOCRIT 29.7 % (39.0-51.0); MEAN CELL VOLUME 101.4 FL (80.0-100.0); MEAN CORPUSCULAR HGB CONC 33.5 % (32.0-36.0); MONO % 8.7 % (0.0-8.0); NEUT % 70.3 % (16.0-70.0); PLATELET COUNT 66 TH/MM3 (150-450); RED BLOOD COUNT 2.93 MIL/MM3 (4.50-5.90); RED CELL DISTRIBUTION WIDTH 15.2 % (11.6-17.2); WHITE BLOOD COUNT 5.7 TH/MM3 (4.0-11.0)
[2017-01-26 05:15] LABS: HEMO FLAGS AUTO DIFF
[2017-01-26 05:33] LABS: BICARBONATE 24.1 MEQ/L (21.0-32.0); POTASSIUM 3.9 MEQ/L (3.5-5.1)
[2017-01-26] MEDS: SODIUM CHLORIDE 0.9% FLUSH 10 ML FLUSH IV FLUSH SCH ×2 (09:00→19:17)
[2017-01-26 09:20] LABS: PLATELET ESTIMATE SMEAR LOW (NORMAL); PLATELET MORPHOLOGY NORMAL (NORMAL); SCAN/DIFF AUTO DIFF CONFIRMED
[2017-01-26] MEDS: amLODIPine BESYLATE 5 MG TAB PO SCH (09:21)
[2017-01-26] MEDS: MULTIVITAMIN TAB PO SCH (09:22)
[2017-01-26] MEDS: FOLIC ACID 1 MG TAB PO SCH (09:22)
[2017-01-26] MEDS: LISINOPRIL 10 MG TAB PO SCH (09:27)
--- NOTE | 2017-01-26 11:55 | HHI.PR ---
Subjective Remarks DOING OK. NO BLEEDING NO TREMORS. Objective Vitals heart reg lung cta abd s/nt ext chronic lower ext stasis change. Vital Signs Date Time Temp Pulse Resp B/P Pulse Ox O2 Delivery O2 Flow Rate FiO2 01/26/17 08:00 77 01/26/17 08:00 99.5 77 18 110/64 94 01/26/17 04:00 98.7 92 16 124/68 99 01/26/17 00:00 99.6 80 18 102/67 96 01/25/17 20:07 102 01/25/17 20:00 99.1 84 16 113/70 97 01/25/17 18:00 98.4 81 17 108/66 98 01/25/17 16:20 77 16 122/74 96 Room Air 01/25/17 12:21 91 20 158/83 100 Room Air 01/25/17 11:54 98.1 95 16 157/83 99 01/25/17 01/25/17 01/26/17 15:00 23:00 07:00 Intake Total 480 ml Balance 480 ml Intake Oral 480 ml # Voids 1 # Bowel Movements 2 Result Diagram: 01/26/17 0434 01/26/17 0434 Imaging Last Impressions Abdomen/Pelvis CT 01/25/17 1215 Signed Impressions: Service Date/Time: Wednesday, January 25, 2017 13:53 - CONCLUSION: 1. Enlarged nodular heterogeneous liver indicating cirrhosis. 2. Recanalization of the umbilical vein and esophageal varices as well as splenomegaly suggesting portal hypertension. 3. Uncomplicated colonic diverticulosis. 4. Grade I anterolisthesis of L5 in relation to S1 with bilateral pars defects. 5. Some ascites within the abdomen and pelvis. Jose Fox MD A/P Problem List: (1) GI bleed Status: Acute Plan: Pt with cirrhosis of liver, ascites, esophageal varices, splenomegaly, thrombocytopenia etoh abuse. cirrhosis likely related to etoh. presented with melena and hemetemasis. was taking nsaids. egd/colon today ppi octreotide resume diet as per gi after endoscopy ivf dvt prophylaxis etoh w/d protocol - (2) Alcoholic cirrhosis of liver with ascites Status: Chronic Plan: see above (3) Thrombocytopenia Status: Chronic Plan: - See above. (4) Diabetes Status: Chronic Plan: - NovoLog SSI - Accu checks - Hold OHA (5) HTN (hypertension) Status: Chronic Plan: - Cont. home meds (6) Hyperlipidemia Status: Chronic Plan: - Hold statin due to cirrhosis Problem Qualifiers (1) GI bleed: Qualified Code: K92.2 - Gastrointestinal hemorrhage, unspecified gastrointestinal hemorrhage type (2) Diabetes: Juev Castillo MD Jan 26, 2017 11:55
[2017-01-26] MEDS ORDERED: PHENYLEPH/NS 1000 MCG/10 ML SYR IV ONE (12:00)
[2017-01-26] MEDS ORDERED: ePHEDrine/NS 25 MG/5 ML SYR IV ONE (12:00)
--- NOTE | 2017-01-26 13:11 | GIPROC ---
[facility] [address] [facility]. [facility], [address] COLONOSCOPY PROCEDURE REPORT EXAM DATE: 01/26/2017 PATIENT NAME: Zion Wilkinson MR #: [id number] BIRTHDATE: 1955 ENDOSCOPIST: Juanis Jay MD ORDER #: [id number] PALLIATIVE CARE NURSE: Gay Fernandes and Miguel Angel Moore STATUS: inpatient INDICATIONS: The patient is a 61 yr old male here for a colonoscopy due to family history of colon cancer, gi bleeding PROCEDURE PERFORMED: colonoscopy with clips MEDICATIONS: Per Anesthesia and None. PREP QUALITY: fair PREP TYPE:Magnesium Citrate ESTIMATED BLOOD LOSS: None CONSENT: The patient understands the risks and benefits of the procedure and understands that these risks include, but are not limited to: sedation, allergic reaction, infection, perforation and/or bleeding. Alternative means of evaluation and treatment include, among others: physical exam, x-rays, and/or surgical intervention. The patient elects to proceed with this endoscopic procedure. medical equipment was checked for proper function. Hand hygiene and appropriate measures for infection prevention was taken. After the risks, benefits and alternatives of the procedure were thoroughly explained, Informed consent was verified, confirmed and timeout was successfully executed by the treatment team. A digital exam was performed and revealed external hemorrhoids The Pentax [id number] endoscope was introduced through the anus and advanced to the cecum, which was identified by both the appendix and ileocecal valve. The instrument was then slowly withdrawn as the colon was fully examined. COLON FINDINGS: Two sessile polyps at hepatic flexure-5 mm and 7 mm-hot snare polypectomy with complete removal pedunculated polyp in midtransverse -7 mm-hot snare polypectomy with complete removal arianne sessile polyps at splenic flexure-5 mm each-hot snare polypectomy with complete removal pedunculated polyp in recxtosigmoid-1.5 cm-hot snare polypectomy with complete removal two clips applied diverticulosis sigmoid,descending rectal varices. Retroflexed views revealed internal hemorrhoids and Retroflexed views revealed medium internal hemorrhoids The scope was then completely withdrawn from the patient and the procedure terminated. PROCEDURE WITHDRAWAL TIME:17minutes ADVERSE EVENTS: There were no complications. IMPRESSIONS: 1. Two sessile polyps at hepatic flexure-5 mm and 7 mm-hot snare polypectomy with complete removal pedunculated polyp in midtransverse -7 mm-hot snare polypectomy with complete removal arianne sessile polyps at splenic flexure-5 mm each-hot snare polypectomy with complete removal pedunculated polyp in recxtosigmoid-1.5 cm-hot snare polypectomy with complete removal two clips applied diverticulosis sigmoid,descending rectal varices 2. Retroflexed views revealed internal hemorrhoids 3. Retroflexed views revealed medium internal hemorrhoids 4. Was performed 5. Revealed external hemorrhoids RECOMMENDATIONS: 1. Await biopsy results. Biopsy results will not be ready for 7-10 days. If you don't hear from us in two weeks, call our office for results. 2. Avoid NSAIDS and Aspirin 3. Yearly rectal exams 4. Probiotics from any [facility] or [employer] store 5. Advance diet family screening for colon cancer RECALL: Colonoscopy, pending biopsy results Juanis Jay MD eSigned: Juanis Jay MD 01/26/2017 1:11 PM cc: PATIENT NAME: Zion Wilkinson MR#: [id number]
--- NOTE | 2017-01-26 13:16 | GIPROC ---
[facility] [address] [facility]. [facility], [id number] EGD PROCEDURE REPORT EXAM DATE: 01/26/2017 PATIENT NAME: Zion Wilkinson MR #: [id number] BIRTHDATE: 1955 ATTENDING: Juanis Jay MD ORDER #: [id number] FISHER SWORDFISH: Gay Fernandes and Miguel Angel Moore STATUS: inpatient INDICATIONS: The patient is a 61 yr old male here for an EGD due to gi bleeding liver cirrhosis PROCEDURE PERFORMED: EGD w/ biopsy MEDICATIONS: Per Anesthesia and None. TOPICAL ANESTHETIC: CONSENT: The patient understands the risks and benefits of the procedure and understands that these risks include, but are not limited to: sedation, allergic reaction, infection, perforation and/or bleeding. Alternative means of evaluation and treatment include, among others: physical exam, x-rays, and/or surgical intervention. The patient elects to proceed with this endoscopic procedure. medical equipment was checked for proper function. Hand hygiene and appropriate measures for infection prevention was taken. After the risks, benefits and alternatives of the procedure were thoroughly explained, Informed consent was verified, confirmed and timeout was successfully executed by the treatment team. The patient was anesthetized with topical anesthesia and the EC-[id number] (Pedi C) endoscope was introduced through the mouth and advanced to the second portion of the duodenum. Retroflexed views revealed a hiatal hernia The gastroscope was then slowly withdrawn and removed. Duodenitis second portion-biopsy nodula mucosa duodenal mucosa -biopsy gastritis antrum-biopsy gastric varices esophageal varices grade 1-2 rosales's esophagus-biopsy at 30 cm, could not do biopsises from rest of Rosales's mucosa due to varices. ADVERSE EVENTS: There were no complications. IMPRESSIONS: 1. Duodenitis second portion-biopsy nodula mucosa duodenal mucosa -biopsy gastritis antrum-biopsy gastric varices esophageal varices grade 1-2 rosales's esophagus-biopsy at 30 cm, could not do biopsises from rest of Rosales's mucosa due to varices 2. Retroflexed views revealed a hiatal hernia RECOMMENDATIONS: 1. Await biopsy results. Biopsy results will not be ready for 7-10 days. If you don't hear from us in two weeks, call our office for biopsy results. 2. Anti-reflux regimen 3. Resume diet avoit etoh start Propranolol if further bleeding consider TIPS fu gi in 1-2 weeks if stable can be dc in 1-2 days PATIENT CONDITION: stable DISPOSITION: Inpatient REPEAT EXAM: EGD pending biopsy results Juanis Jay MD eSigned: Juanis Jay MD 01/26/2017 1:16 PM cc: PATIENT NAME: Zion Wilkinson MR#: [id number]
[2017-01-26] MEDS ORDERED: DO NOT ADM ANY ANTICOAGULANT DRUGS XX PRN (13:30)
[2017-01-26] MEDS ORDERED: PROPOFOL 200 MG/20 ML AMP IV ONE (13:57)
--- NOTE | 2017-01-26 15:52 | EKG ---
Date Performed: 01/26/2017 Time Performed: 08:25:58 PTAGE: 61 years EKG: Sinus rhythm NONSPECIFIC T-WAVE ABNORMALITY BORDERLINE ECG NO PREVIOUS TRACING DOCTOR: Anuj Velasquez Interpretating Date/Time 01/26/2017 15:48:15
[2017-01-26] MEDS: THIAMINE INJ 100 MG in SODIUM CHLORIDE 0.9% INJ 100 ML IV SCH (17:27)
[2017-01-26] MEDS: PANTOPRAZOLE INJ 80 MG in SODIUM CHLORIDE 0.9% INJ 100 ML IV SCH ×2 (17:31→23:01)
[2017-01-26] MEDS: SODIUM CHLOR 0.9% 1000 ML INJ 1,000 ML IV SCH ×2 (17:31→23:02)
[2017-01-26] MEDS: OCTREOTIDE INJ 500 MCG in SODIUM CHLORID 0.9% 500 ML INJ 499.5 ML IV SCH (23:02)
[2017-01-27] VITALS (8 sets, daily range): BP systolic 97–124; BP diastolic 62–76; PULSE 75–80; RESP 18; TEMP 98–100; O2SAT 92–96
[2017-01-27] MEDS: INSULIN ASPART SUPPLEMENTAL SCALE SQ SCH ×5 (04:00→20:00)
[2017-01-27] MEDS: chlordiazePOXIDE 25 MG CAP PO SCH ×3 (05:31→20:54)
[2017-01-27] MEDS: PANTOPRAZOLE INJ 80 MG in SODIUM CHLORIDE 0.9% INJ 100 ML IV SCH (08:00)
[2017-01-27] MEDS: SODIUM CHLORIDE 0.9% FLUSH 10 ML FLUSH IV FLUSH SCH ×2 (09:00→21:00)
[2017-01-27] MEDS: amLODIPine BESYLATE 5 MG TAB PO SCH (09:33)
[2017-01-27] MEDS: FOLIC ACID 1 MG TAB PO SCH (09:33)
[2017-01-27] MEDS: MULTIVITAMIN TAB PO SCH (09:33)
[2017-01-27] MEDS: LISINOPRIL 10 MG TAB PO SCH (09:33)
[2017-01-27] MEDS: SODIUM CHLOR 0.9% 1000 ML INJ 1,000 ML IV SCH (12:20)
--- NOTE | 2017-01-27 14:18 | HHI.PR ---
Subjective Remarks doing. ok no bleeding overnight Objective Vitals oriented nad heart reg lung diminished lung bases abd no tenderness. no rebound. bs ext chronic lower ext stasis and abrasions Vital Signs Date Time Temp Pulse Resp B/P Pulse Ox O2 Delivery O2 Flow Rate FiO2 01/27/17 12:00 98.0 78 18 108/69 95 01/27/17 11:57 79 01/27/17 08:00 98.4 75 18 119/76 94 01/27/17 06:35 Room Air 01/27/17 04:35 100.0 80 18 107/67 92 01/27/17 00:11 99.3 75 18 97/68 93 01/26/17 21:00 97.4 81 18 109/71 96 01/26/17 20:00 80 01/26/17 17:19 95 Nasal Cannula 2.00 01/26/17 16:00 73 01/26/17 16:00 96.9 73 19 98/83 98 01/26/17 14:30 98.3 75 20 102/62 94 Nasal Cannula 2 01/26/17 14:15 74 20 102/66 95 Nasal Cannula 2 01/26/17 01/26/17 01/27/17 15:00 23:00 07:00 Intake Total 1340 ml 1302 ml 1200 ml Output Total 1 ml Balance 1340 ml 1302 ml 1199 ml Intake Oral 840 ml 480 ml IV Total 340 ml 462 ml 720 ml Other 1000 ml Output Urine Total 1 ml # Voids 4 # Bowel Movements 4 1 Result Diagram: 01/26/17 0434 01/26/17 0434 Imaging Last Impressions Abdomen/Pelvis CT 01/25/17 1215 Signed Impressions: Service Date/Time: Wednesday, January 25, 2017 13:53 - CONCLUSION: 1. Enlarged nodular heterogeneous liver indicating cirrhosis. 2. Recanalization of the umbilical vein and esophageal varices as well as splenomegaly suggesting portal hypertension. 3. Uncomplicated colonic diverticulosis. 4. Grade I anterolisthesis of L5 in relation to S1 with bilateral pars defects. 5. Some ascites within the abdomen and pelvis. Jose Fox MD A/P Problem List: (1) GI bleed Status: Acute Plan: Pt with cirrhosis of liver and evidence for portal htn with minimal ascites, esophageal varices, splenomegaly, thrombocytopenia. and dilated umbilical vein. etoh abuse. cirrhosis likely related to etoh. presented with melena and hemetemasis. was taking nsaids for peripheral neuropathy egd 01/2625 grade 1-2 esophageal varices, gastric varices, duodenitis biopsied, barretts esophagus not biopsied, gastritis. no bleeding noted. iv to po ppi finish octreotide advance diet d/c ivf will need close gi f/u for cirrhosis/varices/barretts If persistent fever consider abx emprically to cover for sbp..no abdomen tenderness now. etoh cessation discussed. will add gabapentin for peripheral neuropathy..discussed no nsaids check b12 level check hgba1c and decide on d/c dm med regimen added propranolol for variceal prophylaxis. d/c norvasc and lower francisco inh to avoid hypotension. d/c statin given the cirrhotic liver wean librium to off Long talk and update with pt Psychiatrist brother from [facility] today. we reviewed all labs, egd, and ct findings and I showed imaging. dvt prophylaxis (2) Alcoholic cirrhosis of liver with ascites Status: Chronic Plan: see above (3) Thrombocytopenia Status: Chronic Plan: - See above. (4) Diabetes Status: Chronic Plan: - NovoLog SSI - Accu checks - Hold OHA (5) HTN (hypertension) Status: Chronic Plan: - Cont. home meds (6) Hyperlipidemia Status: Chronic Plan: - Hold statin due to cirrhosis Problem Qualifiers (1) GI bleed: Qualified Code: K92.2 - Gastrointestinal hemorrhage, unspecified gastrointestinal hemorrhage type (2) Diabetes: Juve Castillo MD Jan 27, 2017 14:18
--- NOTE | 2017-01-27 14:20 | HHI.GIFU ---
Subjective Remarks Pt denies any further hematemesis or melena. He is tolerating regular diet. (Eugenia Diaz) Objective Vitals I&O Vital Signs Date Time Temp Pulse Resp B/P Pulse Ox O2 Delivery O2 Flow Rate FiO2 01/27/17 11:57 79 01/27/17 08:00 98.4 75 18 119/76 94 01/27/17 06:35 Room Air 01/27/17 04:35 100.0 80 18 107/67 92 01/27/17 00:11 99.3 75 18 97/68 93 01/26/17 21:00 97.4 81 18 109/71 96 01/26/17 20:00 80 01/26/17 17:19 95 Nasal Cannula 2.00 01/26/17 16:00 73 01/26/17 16:00 96.9 73 19 98/83 98 01/26/17 14:30 98.3 75 20 102/62 94 Nasal Cannula 2 01/26/17 14:15 74 20 102/66 95 Nasal Cannula 2 01/26/17 14:00 73 20 101/63 95 Nasal Cannula 2 I/O 01/26/17 01/26/17 01/26/17 01/27/17 01/27/17 01/27/17 07:00 15:00 23:00 07:00 15:00 23:00 Intake Total 1340 ml 1302 ml 1200 ml Output Total 1 ml Balance 1340 ml 1302 ml 1199 ml Intake Oral 840 ml 480 ml IV Total 340 ml 462 ml 720 ml Other 1000 ml Output Urine Total 1 ml # Voids 4 # Bowel Movements 4 1 Laboratory Laboratory Tests Test 01/25/17 01/26/17 21:18 04:34 Hemoglobin 11.3 GM/DL 10.0 GM/DL Hematocrit 33.8 % 29.7 % Tumor Marker Alpha Fetoprotein 5.0 NG/ML White Blood Count 5.7 TH/MM3 Red Blood Count 2.93 MIL/MM3 Mean Corpuscular Volume 101.4 FL Mean Corpuscular Hemoglobin 34.0 PG Mean Corpuscular Hemoglobin 33.5 % Concent Red Cell Distribution Width 15.2 % Platelet Count 66 TH/MM3 Mean Platelet Volume 8.8 FL Neutrophils (%) (Auto) 70.3 % Lymphocytes (%) (Auto) 18.0 % Monocytes (%) (Auto) 8.7 % Eosinophils (%) (Auto) 2.0 % Basophils (%) (Auto) 1.0 % Neutrophils # (Auto) 4.0 TH/MM3 Lymphocytes # (Auto) 1.0 TH/MM3 Monocytes # (Auto) 0.5 TH/MM3 Eosinophils # (Auto) 0.1 TH/MM3 Basophils # (Auto) 0.1 TH/MM3 CBC Comment AUTO DIFF Differential Comment AUTO DIFF CONFIRMED Platelet Estimate LOW Platelet Morphology Comment NORMAL Sodium Level 140 MEQ/L Potassium Level 3.9 MEQ/L Chloride Level 107 MEQ/L Carbon Dioxide Level 24.1 MEQ/L Anion Gap 9 MEQ/L Blood Urea Nitrogen 16 MG/DL Creatinine 0.79 MG/DL Estimat Glomerular Filtration 100 ML/MIN Rate Random Glucose 119 MG/DL Calcium Level 7.9 MG/DL Imaging Last Impressions Abdomen/Pelvis CT 01/25/17 1215 Signed Impressions: Service Date/Time: Wednesday, January 25, 2017 13:53 - CONCLUSION: 1. Enlarged nodular heterogeneous liver indicating cirrhosis. 2. Recanalization of the umbilical vein and esophageal varices as well as splenomegaly suggesting portal hypertension. 3. Uncomplicated colonic diverticulosis. 4. Grade I anterolisthesis of L5 in relation to S1 with bilateral pars defects. 5. Some ascites within the abdomen and pelvis. Jose Fox MD Physical Exam HEENT: Pupils round and reactive to light; normocephalic; atraumatic; no jaundice. Throat is clear. NECK: Neck is supple, no JVD, no lymphadenopathy. CHEST: CTA CARDIAC: Regular ABDOMEN: +BS, soft, mildly distended, nontender EXTREMITIES: No clubbing, cyanosis, or edema. SKIN: Bilateral LE venous stasis skin changes DIRECTOR OF MUSIC: No focal deficits; alert and oriented times three. (Eugenia Diaz) Assessment and Plan Plan ASSESSMENT: - GIB, Upper with possible hematemesis/melena. Pt started having vomiting on x 2 episodes and then started having dark stools shortly afterwards. He is color blind so he is not sure about the color but feels this was blood. He denies any hx of GI bleeding, PUD. HH was 11.7/34.7 at admission. Hemoccult positive stool in ER. He drinks a bottle of wine daily. He also takes 2 ibuprofen with a Mireille ASA at night for neuropathy pain. Pt underwent evaluation with EGD on 01/26/17 --> Duodenitis in the second portion , nodular duodenal mucosa, gastritis, gastric varices, esophageal varices grade 1-2, and Steve's esophagus-biopsy at 30 cm, could not do biopsies from rest of Steve's mucosa due to varices - Elevated LFTs/Liver cirrhosis, new diagnosis. CT Abd/pelvis revealed enlarged nodular heterogeneous liver indicating cirrhosis, recanalization of the umbilical vein and esophageal varices as well as splenomegaly suggesting portal hypertension, uncomplicated colonic diverticulosis, grade I anterolisthesis of L5 in relation to S1 with bilateral pars defects and some ascites within the abdomen and pelvis. Pt has long ETOH use. Never been told he has cirrhosis. Likely related to ETOH, liver workup is pending. AFP is 5.0 - DM, Neuropathy, HTN, Hyperlipidemia per primary. - FHx colon cancer in father. Colonoscopy 01/26/17 --> Two sessile polyps at hepatic flexure s/p snare polypectomy, pedunculated polyp in midtransverse s/p snare polypectomy, two sessile polyps at splenic flexure s/ p snare polypectomy, 1.5cm pedunculated polyp in rectosigmoid s/p snare polypectomy with complete removal and two clips applied, diverticulosis , rectal varices, internal/external hemorrhoids PLAN: - Start Propranolol when BP allows - If any further bleeding consider TIPS - Convert to Protonix 40mg po BID - Stop Octreotide - Monitor labs - Supportive care - Further recommendations as the case develops - Pt seen and examined by Dr. Jay and myself and this note is written on her behalf (Eugenia Diaz) Physician Comments seen, examined agree with above (Juanis Jay MD) Eugenia Diaz Jan 27, 2017 14:20 Juanis Jay MD Jan 27, 2017 15:56
[2017-01-27] MEDS: THIAMINE INJ 100 MG in SODIUM CHLORIDE 0.9% INJ 100 ML IV SCH (17:30)
[2017-01-27] MEDS: GABAPENTIN 100 MG CAP PO SCH (17:30)
[2017-01-27] MEDS: PANTOPRAZOLE SOD 40 MG DELAYED RELEASE TAB PO SCH (20:53)
[2017-01-27] MEDS ORDERED: PROPRANOLOL HCL 10 MG TAB PO SCH (21:00)
[2017-01-27] MEDS ORDERED: PROPRANOLOL HCL 20 MG TAB PO SCH (21:00)
[2017-01-28] VITALS: BP 121/81; PULSE 78; RESP 18; TEMP 97.5; O2SAT 95
[2017-01-28] MEDS: INSULIN ASPART SUPPLEMENTAL SCALE SQ SCH ×5 (04:00→16:00)
[2017-01-28 04:15] VITALS: BP 115/79; PULSE 74; RESP 18; TEMP 98; O2SAT 95
[2017-01-28 07:11] LABS: AUTOMATED NEUTROPHIL # 4.2 TH/MM3 (1.8-7.7); BASOPHIL # 0.1 TH/MM3 (0-0.2); BASOPHIL % 0.8 % (0.0-2.0); EOSINOPHIL # 0.1 TH/MM3 (0-0.4); HEMATOCRIT 30.7 % (39.0-51.0); LYMPH % 18.3 % (9.0-44.0); LYMPHOCYTE # 1.2 TH/MM3 (1.0-4.8); MEAN CELL VOLUME 101.8 FL (80.0-100.0); MEAN CORPUSCULAR HEMOGLOBIN 34.8 PG (27.0-34.0); MEAN CORPUSCULAR HGB CONC 34.1 % (32.0-36.0); MONO % 11.7 % (0.0-8.0); NEUT % 67.2 % (16.0-70.0); PLATELET COUNT 65 TH/MM3 (150-450); RED BLOOD COUNT 3.01 MIL/MM3 (4.50-5.90); RED CELL DISTRIBUTION WIDTH 15.1 % (11.6-17.2); WHITE BLOOD COUNT 6.3 TH/MM3 (4.0-11.0)
[2017-01-28 07:23] LABS: HEMO FLAGS AUTO DIFF
[2017-01-28 07:58] LABS: HDL CHOLESTEROL 9.7 MG/DL (40.0-60.0); LDL CHOLESTEROL 67 MG/DL (0-99)
[2017-01-28 08:00] VITALS: BP 123/72; PULSE 75; RESP 20; TEMP 99.4; O2SAT 95
[2017-01-28 08:18] LABS: PLATELET ESTIMATE SMEAR LOW (NORMAL); PLATELET MORPHOLOGY NORMAL (NORMAL); SCAN/DIFF AUTO DIFF CONFIRMED
[2017-01-28] MEDS ORDERED: LISINOPRIL 5 MG TAB PO SCH (09:00)
[2017-01-28] MEDS ORDERED: PROPRANOLOL HCL 10 MG TAB PO SCH (09:00)
[2017-01-28] MEDS ORDERED: PANTOPRAZOLE SOD 40 MG DELAYED RELEASE TAB PO SCH (09:00)
[2017-01-28] MEDS: SODIUM CHLORIDE 0.9% FLUSH 10 ML FLUSH IV FLUSH SCH (09:00)
[2017-01-28] MEDS: GABAPENTIN 100 MG CAP PO SCH ×3 (09:27→16:19)
[2017-01-28] MEDS: MULTIVITAMIN TAB PO SCH (09:28)
[2017-01-28] MEDS: chlordiazePOXIDE 25 MG CAP PO SCH (09:29)
[2017-01-28] MEDS: PANTOPRAZOLE SOD 40 MG DELAYED RELEASE TAB PO SCH (09:29)
[2017-01-28] MEDS: FOLIC ACID 1 MG TAB PO SCH (09:29)
--- NOTE | 2017-01-28 09:31 | HHI.GIFU ---
Subjective Remarks Up in chair. No active bleeding. Reports that he had a normal colored bowel movement yesterday. No n/v. No abdominal pain. Tolerating diet. (Peggy Peck) Objective Vitals I&O Vital Signs Date Time Temp Pulse Resp B/P Pulse Ox O2 Delivery O2 Flow Rate FiO2 01/28/17 04:15 98.0 74 18 115/79 95 01/28/17 00:00 97.5 78 18 121/81 95 01/27/17 20:30 99.4 79 18 124/69 96 01/27/17 18:48 Room Air 01/27/17 16:00 99.1 78 18 102/62 95 01/27/17 14:39 95 Nasal Cannula 21 01/27/17 12:00 98.0 78 18 108/69 95 01/27/17 11:57 79 I/O 01/27/17 01/27/17 01/27/17 01/28/17 01/28/17 01/28/17 07:00 15:00 23:00 07:00 15:00 23:00 Intake Total 1200 ml 413 ml 1080 ml 240 ml Output Total 1 ml Balance 1199 ml 413 ml 1080 ml 240 ml Intake Oral 480 ml 1080 ml 240 ml IV Total 720 ml 413 ml Output Urine Total 1 ml # Voids 4 3 # Bowel Movements 1 2 0 Laboratory Laboratory Tests Test 01/28/17 04:43 White Blood Count 6.3 Red Blood Count 3.01 Hemoglobin 10.5 Hematocrit 30.7 Mean Corpuscular Volume 101.8 Mean Corpuscular Hemoglobin 34.8 Mean Corpuscular Hemoglobin 34.1 Concent Red Cell Distribution Width 15.1 Platelet Count 65 Mean Platelet Volume 9.7 Neutrophils (%) (Auto) 67.2 Lymphocytes (%) (Auto) 18.3 Monocytes (%) (Auto) 11.7 Eosinophils (%) (Auto) 2.0 Basophils (%) (Auto) 0.8 Neutrophils # (Auto) 4.2 Lymphocytes # (Auto) 1.2 Monocytes # (Auto) 0.7 Eosinophils # (Auto) 0.1 Basophils # (Auto) 0.1 CBC Comment AUTO DIFF Differential Comment AUTO DIFF CONFIRMED Platelet Estimate LOW Platelet Morphology Comment NORMAL Triglycerides Level 187 Cholesterol Level 114 LDL Cholesterol 67 HDL Cholesterol 9.7 Cholesterol/HDL Ratio 11.75 Vitamin B12 Level 669 Imaging Last Impressions Abdomen/Pelvis CT 01/25/17 1215 Signed Impressions: Service Date/Time: Wednesday, January 25, 2017 13:53 - CONCLUSION: 1. Enlarged nodular heterogeneous liver indicating cirrhosis. 2. Recanalization of the umbilical vein and esophageal varices as well as splenomegaly suggesting portal hypertension. 3. Uncomplicated colonic diverticulosis. 4. Grade I anterolisthesis of L5 in relation to S1 with bilateral pars defects. 5. Some ascites within the abdomen and pelvis. Jose Fox MD Physical Exam HEENT: Normocephalic; atraumatic; no jaundice. Throat is clear. NECK: Neck is supple, no JVD, no lymphadenopathy. CHEST: CTA CARDIAC: Regular ABDOMEN: +BS, soft, mildly distended, nontender EXTREMITIES: No clubbing, cyanosis, or edema. SKIN: Bilateral LE venous stasis skin changes CUSTOM DESIGNER: No focal deficits; alert and oriented times three. (Peggy Peck) Assessment and Plan Plan ASSESSMENT: - GIB, Upper with possible hematemesis/melena. Pt started having vomiting on x 2 episodes and then started having dark stools shortly afterwards. He is color blind so he is not sure about the color but feels this was blood. He denies any hx of GI bleeding, PUD. HH was 11.7/34.7 at admission. Hemoccult positive stool in ER. He drinks a bottle of wine daily. He also takes 2 ibuprofen with a Mireille ASA at night for neuropathy pain. Pt underwent evaluation with EGD on 01/26/17 --> Duodenitis in the second portion , nodular duodenal mucosa, gastritis, gastric varices, esophageal varices grade 1-2, and Steve's esophagus-biopsy at 30 cm, could not do biopsies from rest of Steve's mucosa due to varices. Colonoscopy (01/26/17)----> 1. Two sessile polyps at hepatic flexure-5 mm and 7 mm-hot snare polypectomy with complete removal pedunculated polyp in midtransverse -7 mm-hot snare polypectomy with complete removal two sessile polyps at splenic flexure-5 mm each-hot snare polypectomy with complete removal, pedunculated polyp in recxtosigmoid-1.5 cm- hot snare polypectomy with complete removal two clips applied diverticulosis sigmoid,descending rectal varices 2. Retroflexed views revealed internal hemorrhoids 3. Retroflexed views revealed medium internal hemorrhoids 4. Revealed external hemorrhoidsNo further active bleeding. No active bleeding. HH 10.5/30.7. - Elevated LFTs/Liver cirrhosis, new diagnosis. CT Abd/pelvis revealed enlarged nodular heterogeneous liver indicating cirrhosis, recanalization of the umbilical vein and esophageal varices as well as splenomegaly suggesting portal hypertension, uncomplicated colonic diverticulosis, grade I anterolisthesis of L5 in relation to S1 with bilateral pars defects and some ascites within the abdomen and pelvis. Pt has long ETOH use. Never been told he has cirrhosis. Likely related to ETOH, liver workup is pending. AFP is 5.0. Hepatitis profile pending. ROSHAN pending. ASMA pending. AMA pending. Ceruloplasmin pending. Alpha 1 Antitrypsin pending. Iron Saturation 33.7, Ferritin 496. - DM, Neuropathy, HTN, Hyperlipidemia per primary. - FHx colon cancer in father. Colonoscopy 01/26/17 --> Two sessile polyps at hepatic flexure s/p snare polypectomy, pedunculated polyp in midtransverse s/p snare polypectomy, two sessile polyps at splenic flexure s/ p snare polypectomy, 1.5cm pedunculated polyp in rectosigmoid s/p snare polypectomy with complete removal and two clips applied, diverticulosis , rectal varices, internal/external hemorrhoids PLAN: - Low fat low salt diet - Await pathology - Cont. PPI - Monitor labs - Supportive care - Consider Propranolol when b/p allows - Complete ETOH Cessation, d/w patient and brother, verbalizes understanding - Okay to d/c home from GI standpoint, FU JENY 2 weeks - Further recommendations as the case develops - Pt seen and examined by Dr. Carlos and myself and this note is written on his behalf (Peggy Peck) Physician Comments Patient seen and examined Agree with above Continue with current supportive care Monitor labs Okay for discharge from a GI standpoint patient to follow-up post discharge ( John Carlos MD) Peggy Peck Jan 28, 2017 09:31 John Carlos MD Jan 28, 2017 23:10
[2017-01-28 12:00] VITALS: BP 100/60; PULSE 67; RESP 16; TEMP 98.9; O2SAT 96
[2017-01-28] MEDS ORDERED: PANT40TA3 PO (14:07)
[2017-01-28] MEDS ORDERED: FOLI1TAB4 PO (14:07)
[2017-01-28] MEDS ORDERED: GABA100C4 PO (14:07)
--- NOTE | 2017-01-28 14:09 | HHI.FF ---
Face to Face Verification Diagnosis: (1) GI bleed (2) Alcoholic cirrhosis of liver with ascites (3) HTN (hypertension) (4) Thrombocytopenia (5) Hyperlipidemia (6) Diabetes Physical Therapy Order: Evaluate and Treat Home Health Nursing Order: Medical education Nursing assessment with vital signs Instructions: Pt will need a repeat CBC and CMP on , 01/31/17, with results to be sent to his PCP, Dr. Hay, and to Dr. Jay's office. I have seen patient Zion Wilkinson on 01/28/17. My clinical findings support the need for the requested home health care services because: Deconditioned w/ increased weakness I certify that my clinical findings support that this patient is homebound because: Unsteady gait/balance Eugenia Diaz Jan 28, 2017 14:09 Zacahry Pisano DO Jan 31, 2017 23:31
[2017-01-28 14:10] VITALS: O2SAT 96
[2017-01-28] MEDS ORDERED: PROP10TA6 PO (14:41)
[2017-01-28] MEDS ORDERED: MULTTAB67 PO (14:58)
[2017-01-28] MEDS ORDERED: THIA100T PO (14:58)
--- NOTE | 2017-01-28 15:01 | HHI.DCPOC ---
Discharge Care Plan Diagnosis: (1) GI bleed (2) Alcoholic cirrhosis of liver with ascites (3) Alcohol abuse (4) HTN (hypertension) (5) Thrombocytopenia (6) Hyperlipidemia (7) Diabetes Goals to Promote Your Health - The pt has an appt scheduled with [facility], on , 02/07/17 @ 9:00AM with Claranorma Bradley. - His NEW medications include: - Propranolol 10mg twice daily (for your dilated vessels in your stomach related to cirrhosis) - Gabapentin 100mg three times daily (for your diabetic nerve pain) - Protonix 40mg twice daily (for your stomach) - Multivitamin once daily, Folic Acid 1mg once daily, and Thiamine 100mg once daily (for alcohol detox) - His STOPPED Medications: - Lisinopril 10mg daily - Amlodipine 5mg daily - Atorvastatin 10mg daily (this may be resumed once cleared by GI and PCP to do so) - Nugenix Directions to Meet Your Goals Take your medications as prescribed Follow your dietary instruction Follow activity as directed Keep your appointments as scheduled Take your immunizations and boosters as scheduled If your symptoms worsen call your PCP, if no PCP go to Urgent Care Center or Emergency Room Smoking is Dangerous to Your Health. Avoid second hand smoke Call the 24-hour hour crisis hotline for domestic abuse at Eugenia Diaz Jan 28, 2017 15:01 Zachary Pisano DO Jan 31, 2017 23:31
[2017-01-28 15:54] LABS: ANA SCREEN NEG (NEG)
[2017-01-28 16:17] LABS: HEMOGLOBIN A1a 0.9 %; HEMOGLOBIN A1b 1.3 %; HEMOGLOBIN Ao 86.6 %; HEMOGLOBIN F 0.2 %; HEMOGLOBIN LA1C 1.7 %; HEMOGLOBIN P3 3.2 %
[2017-01-28] MEDS: THIAMINE INJ 100 MG in SODIUM CHLORIDE 0.9% INJ 100 ML IV SCH (17:00)
[2017-01-30 13:52] LABS: MITOCHONDRIAL ABS LESS THAN 20.0 U (())
--- NOTE | 2017-02-25 21:52 | HHI.DS ---
Discharge Summary Admission Date Jan 25, 2017 at 14:52 Discharge Date: Jan 28, 2017 Admitting Diagnosis GI bleed (1) GI bleed Diagnosis: Principal (2) Alcoholic cirrhosis of liver with ascites Diagnosis: Principal (3) Thrombocytopenia Diagnosis: Principal (4) Diabetes Diagnosis: Secondary (5) HTN (hypertension) Diagnosis: Secondary (6) Hyperlipidemia Diagnosis: Secondary Brief History Mr. Wilkinson is a pleasant 61 y/o WM with HTN, diabetes, hyperlipidemia and alcohol abuse. He reported to the ED at [facility] on 01/25/17 with reported melena and hematemesis. He states that he woke up yesterday morning and had black stool and then vomited up blood. The pt reports that he is color blind so he could not tell if it was bright red blood on the emesis. He had another episode of vomiting up blood last night. Today pt has had loose black tarry stool but no further vomiting. He denies any previous similar episodes. He states that today he felt somewhat weak but denies any dizziness, chest pain, palpitations, SOB. He does reports that he takes a couple ibuprofen and one ASA at night for his diabetic peripheral neuropathy which he has been doing every night for the last 6 months. He denies any previous evaluation with EGD or colonoscopy. He denies any abd pain or reflux in the last 9 months. He used to have issues with reflux but this has improved. Pt reports that he had a fever of 101 last night and took some Tylenol and that improved. Pts labs at admission Hgb 11.7, Hct 34.1, MCV 100.8, Platelet count 88,000. His LFTs revealed TBili 1.8, AST 72, ALT 28, AlkPhos 148. CT Abd/pelvis in the ED revealed enlarged nodular heterogeneous liver indicating cirrhosis, recanalization of the umbilical vein and esophageal varices as well as splenomegaly suggesting portal hypertension, uncomplicated colonic diverticulosis, grade I anterolisthesis of L5 in relation to S1 with bilateral pars defects and some ascites within the abdomen and pelvis. Pt was noted to be Hemoccult positive in the ED. Hospital Course Pt with cirrhosis of liver and evidence for portal htn with minimal ascites, esophageal varices, splenomegaly, thrombocytopenia. and dilated umbilical vein. etoh abuse. cirrhosis likely related to etoh. presented with melena and hemetemasis. was taking nsaids for peripheral neuropathy egd 01/2625 grade 1-2 esophageal varices, gastric varices, duodenitis biopsied, barretts esophagus not biopsied, gastritis. no bleeding noted. iv to po ppi finish octreotide advance diet d/c ivf will need close gi f/u for cirrhosis/varices/barretts If persistent fever consider abx emprically to cover for sbp..no abdomen tenderness now. etoh cessation discussed. will add gabapentin for peripheral neuropathy..discussed no nsaids added propranolol for variceal prophylaxis. d/c norvasc and lower francisco inh to avoid hypotension. d/c statin given the cirrhotic liver wean librium to off Long talk and update with pt Psychiatrist brother from [facility] today. we reviewed all labs, egd, and ct findings and I showed imaging. dvt prophylaxis Pt Condition on Discharge: Stable Discharge Disposition: Disch w/ Home Health Serv Discharge Instructions DIET: Follow Instructions for: Heart Healthy Diet Activities you can perform: Regular-No Restrictions Follow up Referrals: Gastroenterology - 2 Weeks with Juanis Jay MD PCP Follow-up - [address] Hay Psychiatry Adult - 02/07/17 with [facility] New Medications: Multiple Vitamin (Multiple Vitamin) 1 Tab 1 TAB PO DAILY Nutritional Supplement #31 Ref 0 TAB Thiamine (Thiamine) 100 Mg Tab 100 MG PO DAILY Nutritional Supplement #31 Ref 0 TAB Folic Acid (Folate) 1 Mg Tab 1 MG PO DAILY Alcohol Detox #31 TAB Gabapentin (Gabapentin) 100 Mg Cap 100 MG PO TID neuropathy #93 CAP Pantoprazole (Pantoprazole) 40 Mg Tab 40 MG PO Q12HR gib #62 TAB Propranolol (Propranolol) 10 Mg Tab 10 MG PO BID esophageal varices #62 TAB Continued Medications: Canagliflozin-Metformin (Invokamet) 150-500 Mg Tab 1 TAB PO BID Take with meals. Avoid ethanol. Blood Sugar Management #60 Ref 0 TAB Discontinued Medications: Amlodipine (Amlodipine) 5 Mg Tab 5 MG PO DAILY Blood Pressure Management #30 Ref 0 TAB Atorvastatin (Atorvastatin) 10 Mg Tab 10 MG PO DAILY Cholesterol Management #30 Ref 0 TAB Lisinopril (Lisinopril) 10 Mg Tab 10 MG PO DAILY #30 Ref 0 TAB ([Nugenix]) Juve Castillo MD Feb 25, 2017 21:52
== END 2017-01-28 16:55 | disposition home health service (06) | DRG 378 ==
LOC: NEPE 11:52 → NEDA 14:52 → N06A 17:58
PROVIDERS: ADMIT Hospitalist; ATTEND Hospitalist
PROC: 0DBE8ZZ Excision of Large Intestine, Via Natural or Artificial Opening Endoscopic (ICD-10-PCS; 2017-01-26)
PROC: 0DB98ZX Excision of Duodenum, Via Natural or Artificial Opening Endoscopic, Diagnostic (ICD-10-PCS; principal; 2017-01-26 12:00)
PROC: 0DB68ZX Excision of Stomach, Via Natural or Artificial Opening Endoscopic, Diagnostic (ICD-10-PCS; 2017-01-26 12:00)
DX: K92.0 Hematemesis (principal); K76.6 Portal hypertension; E11.42 Type 2 diabetes mellitus with diabetic polyneuropathy; K70.31 Alcoholic cirrhosis of liver with ascites; D69.6 Thrombocytopenia, unspecified; K92.1 Melena; I10 Essential (primary) hypertension; R16.1 Splenomegaly, not elsewhere classified; K57.30 Diverticulosis of large intestine without perforation or abscess without bleeding; E78.5 Hyperlipidemia, unspecified; F10.10 Alcohol abuse, uncomplicated; K29.80 Duodenitis without bleeding; K29.70 Gastritis, unspecified, without bleeding; I86.4 Gastric varices; K62.1 Rectal polyp; K22.70 Barrett's esophagus without dysplasia; I85.10 Secondary esophageal varices without bleeding; K44.9 Diaphragmatic hernia without obstruction or gangrene; K64.4 Residual hemorrhoidal skin tags; K64.8 Other hemorrhoids; D12.3 Benign neoplasm of transverse colon; D12.7 Benign neoplasm of rectosigmoid junction; E66.9 Obesity, unspecified; H53.50 Unspecified color vision deficiencies; Z68.35 Body mass index [BMI] 35.0-35.9, adult; Z79.84 Long term (current) use of oral hypoglycemic drugs; Z80.0 Family history of malignant neoplasm of digestive organs
CPT/HCPCS: 74177; 80048; 80053; 80061; 80074; 81001; 82103; 82105; 82390; 82607; 82728; 82948; 83036; 83520; 83540; 83550; 83690; 83735; 85014; 85018; 85025; 85610; 85730; 86038; 86256; 88305; 88312; 93005; 96361; 96374; 96375; C9113; J1815; J2354; J2370; J2405; J3010; J3411; J7030; J7040; Q9967